=== PATIENT | female | born 1995 | race Caucasian/White ===

== ENCOUNTER 2018-03-25 16:45 | Inpatient (IN) | payer OTHER, SELFPAY ==
[2018-03-25 16:58] VITALS: BMI 25.0
[2018-03-25] MEDS: 0.9% Saline Lock 10 ML Syringe IV (17:38)
[2018-03-25 17:47] LABS: Hematocrit 34.7 % (37-47); Hemoglobin 11.3 g/dl (12.0-15.0); Mean Corp Hgb Conc 32.6 g/gl (32-36); Mean Corpuscular Hgb 27.4 pg (27.0-32.0); Mean Corpuscular Volume 84.2 fL (81-99); Mean Platelet Vol. 10.1 fl (6.2-12.0); Platelet Count 174 K/mm3 (150-450); RBC Distribution Width CV 14.4 % (11.6-14.6); Red Blood Count 4.12 M/mm3 (4.2-5.4); White Blood Count 10.3 K/mm3 (4.4-11.0)
[2018-03-25 17:48] LABS: Scan Indicated on CBC? Y/N NO
[2018-03-25] MEDS: miSOPROStol 25 MCG TABLET PO (17:48)
--- NOTE | 2018-03-25 18:03 | HP.PCM_ITS ---
History Date of Admission: 03/25/18 Final JING: 03/19/18 Final JING Source: US <20 weeks Gestational age: 40 Weeks and 6 Days History of this : 22-year-old 1 para 0 at 40-6/7 weeks gestation with EDC is 03/19/2018 by last menstrual period confirmed by first trimester ultrasound who presents for induction of labor today due to being 41 weeks at midnight. She denies any gross vaginal bleeding early fluid. She has had good movements. Her has been uncomplicated to date. Past medical history significant for abnormal Pap smear, and heavy periods Surgical history- tonsillectomy Allergies No Known Allergies Allergy (Verified 03/25/18 17:34) Home Medications: Home Medications Pnv95/Ferrous Fumarate/FA [ Vitamin Tablet] 1 each PO DAILY 03/25/18 Smoking Status: Never smoker History Past Pregnancies: Past Pregnancies Delivery Date Name GA/Weeks Outcome Route Weight Infant Gender Labor Length Anesthesia Delivery Location Provider FOB Expected Delivery Method: Spontaneous Vaginal Review of Systems Constitutional: Denies: Anorexia, Chills, Fever Cardiovascular: Denies: Chest Pain Respiratory: Denies: Cough Gastrointestinal: Denies: Diarrhea Skin: Denies: Rash Physical Exam General: Alert, Cooperative, No apparent distress Abdomen: Soft, Non Tender, Non-Distended, Gravid, Appropriate for Gestational Age Extremities:: No edema Estimated gestational size: Appropriate for gestational size Presentation: Cephalic Cervix Dilation (cm): 0.5 - posterior, firm Station: -3 Effacement (%): 70 Assessment/Plan FHTs category 1 22-year-old 1 para 0 at 40-6/7 weeks for cervical ripening tonight with Cytotec and likely Bernardo. Will likely be Pitocin and artificial rupture of membranes for the induction later. May have epidural if desires. Estimated weight is less than 4500 g clinically and pelvis clinically adequate to expect vaginal delivery. May use nitrous oxide or Nubain as well. Risks, benefits, and alternatives to induction labrum discussed with the patient , her questions were answered to her satisfaction she desires to proceed. Consents were signed.
[2018-03-25] MEDS: 0.9% Normal Saline 100 ML IV.SOLN. INTRA-UTER (21:10)
--- NOTE | 2018-03-25 21:16 | PCM.PN.BLA ---
Progress Note Feels mild contractions. No other c/o FHTs category one. Tocos shows irreg ctxs Cervix 60/-2, mid position and medium consistency Bernardo placed over stylette in usual sterile fashion and inflated to 30 cc. Placement over internal os confirmed Cont. expectant management one dose of vaginal cytotec now start pitocin prn if inadequate contractions in 4 hrs patient agrees w/ plan
[2018-03-25] MEDS: miSOPROStol 25 MCG TABLET VAGINAL (21:26)
[2018-03-25] MEDS: Ondansetron 4 MG/2 ML Vial IV (22:42)
[2018-03-26] MEDS: Oxytocin 30 units/NS 500 ml 30 UNITS/500 ML IV.SOLN IV (02:24)
[2018-03-26] MEDS: HYDROmorphone 1 MG/ML Syringe IV ×2 (04:41)
[2018-03-26] MEDS: Lactated Ringers 1,000 ML 50 ML IV ×3 (06:15→09:11)
[2018-03-26] MEDS: Ondansetron 4 MG/2 ML Vial IV (06:23)
[2018-03-26] MEDS: fentaNYL-bupivacaine (epidural) 100 ML BAG EPIDURAL (07:00)
--- NOTE | 2018-03-26 09:30 | PCM.PN.BLA ---
Progress Note Comfortable w/ epidural. Since epidural some variable and late decels. Normal baseline and moderate variability. AROM w/ return of small amount of clear fluid. IUPC and FSE placed, prolonged decels at that time. Repositioned, pitocin off. Now normal baseline and some decelerations w/ moderate variability. Will restart pitocin/ /-1. Cont. expectant management
[2018-03-26] MEDS: Amnioinfusion- 0.9% NS 1,000 ML IV.SOLN. 200 ML INTRA-UTER (10:51)
[2018-03-26] MEDS: Oxytocin 30 units/NS 500 ml 30 UNITS/500 ML IV.SOLN 334 UNITS IV (13:52)
[2018-03-26] MEDS: Oxytocin 30 units/NS 500 ml 30 UNITS/500 ML IV.SOLN 167 UNITS IV (14:02)
--- NOTE | 2018-03-26 14:08 | PCM.OB.VAG ---
Vaginal Delivery Maternal Presentation: Medically Indicated Induction Method of Induction: Pitocin, Bernardo Bulb, Amniotomy, Cytotec Medical Reason for Induction: - - 41 weeks Amniotic Membrane Rupture Type: Artificial Amniotic Fluid Description: Clear Final JING: 03/19/18 Final JING Source: LMP Gestational age: 41 Weeks and 0 Days Date of Procedure: 03/26/18 Pre-Operative Diagnosis: labor Post-Operative Diagnosis: same Surgery/ Procedure Performed: Spontaneous Vaginal Delivery Type of Anesthesia: Epidural Description of Procedure: A vigorous male infant was delivered AUDREY over a first-degree perineal laceration. A loose nuchal cord ?1 was easily reduced. The remainder the infant was delivered with maternal pushing and gentle traction only in less than 15 seconds. The Pitocin infusion was initiated for active management of the third stage. The cord was clamped and cut after 1 minute. The was attended to by the waiting nursing staff. The placenta was delivered spontaneously and intact. The cervix and vagina were intact. The first-degree perineal laceration was repaired with 2-0 Vicryl suture in a running standard fashion. Sponge and needle counts were correct. A vaginal sweep was completed by me. Presentation: AUDREY Placental Delivery Description: Spontaneous Placenta Disposition: [facility] Cord Vessel Description: 3 Vessels Nuchal Cord Compression: Without compression Cord Entanglement: Around neck x 1, loose Drain: Bernardo to straight drain Estimated Blood Loss: 200 Infant A gender: Male (1 minute): 8 (5 minute): 9 Episiotomy Description: None Laceration: 1st degree - perinal
[2018-03-26 17:27] VITALS: BP 115/70; PULSE 104; RESP 18; TEMP 37.2; O2SAT 97
--- NOTE | 2018-03-26 17:29 | NURSING ---
Patient attempted to ambulate to bathroom with nurse assistance, but got dizzy upon standing. Sat back in bed. Does not complain of a full bladder. Uterus is midline and 1 below umbilicus. Will reattempt ambulating in 30-60 minutes.
[2018-03-26 19:30] VITALS: BP 116/59; PULSE 83; RESP 18; TEMP 36.7
[2018-03-26] MEDS: Naproxen 250 MG Tablet PO (20:11)
[2018-03-26] MEDS: Dibucaine 30 GM Tube 1 APPLIC TOPICAL (21:41)
[2018-03-27 00:15] VITALS: BP 103/54; PULSE 85; RESP 16; TEMP 36.8
[2018-03-27 04:30] VITALS: BP 104/62; PULSE 75; RESP 18; TEMP 36.3
[2018-03-27] MEDS: Naproxen 250 MG Tablet PO (04:40)
[2018-03-27 08:00] VITALS: BP 115/78; PULSE 86; RESP 16; TEMP 36.5
[2018-03-27 12:30] VITALS: BP 111/69; PULSE 87; RESP 15; TEMP 36.8
--- NOTE | 2018-03-27 13:37 | PCM.PN.OB ---
Subjective: pain well controlled, average lochia, no N/V - Physical Exam General: Alert, Cooperative, No apparent distress Vital Signs Temp Pulse Resp BP Pulse Ox 98.2 F 87 15 111/69 97 03/27/18 12:30 03/27/18 12:30 03/27/18 12:30 03/27/18 12:30 03/26/18 17:27 Oxygen Delivery Method Room Air Weight: 72.3 kg Body Mass Index (BMI) 25.0 Intake and Output for Last 24 Hours 03/25/18 03/26/18 03/27/18 23:59 23:59 23:59 Intake Total 2079 / 2079 Output Total 400 / 400 2950 / 2950 Balance -400 / -400 -870 / -870 Medical Necessity - Tobacco Use Smoking Status: Never smoker Assessment/Plan PPD#1s/p and doing well would like to restart buspar home today if ok w/ peds
--- NOTE | 2018-03-27 13:40 | DCINST_ITS ---
Discharge Diet: No Restrictions Discharge Activity: Return to Normal Activity, May not drive while taking narcotic pain medications., May Shower May resume sexual activity in: 4-6 weeks Additional Activity Instructions:: Nothing in the vagina for 4-6 weeks. You may return to work/school in 6 weeks. Call your doctor if your incision/area has: Continuous Slow Oozing, Sudden Increased Bleeding, Increased Pain/ Swelling, Increased Redness, Foul Smelling Discharge Additional Instructions: If you experience any of the following, contact your healthcare provider. * Bleeding that soaks a pad every hour for 2 hours * Fever 100.4 or higher * Unrelieved incision or abdominal pain * Swelling, redness, discharge or bleeding from your incision or episiotomy site * Your incision begins to separate * Problems urinating (including inability to urinate or burning while urinating) . * Visual changes * Severe headache * Flu-like symptoms * Pain or redness in one of both of your breasts * Pain, warmth, tenderness or swelling in your legs, especially the calf area * Frequent nausea and vomiting * Symptoms of depression or anxiety If you experience any of the following, call 911 or go to the nearest Emergency Room. * Chest pain * Problems breathing * Seizure activity * Partial or complete paralysis of a body part, slurred speech, weakness or drooping of the face, or a sudden inability to walk or hold your balance Allergies/Adverse Reactions: Allergies No Known Allergies Allergy (Verified 03/25/18 17:34) Medications to take at Discharge Pnv95/Ferrous Fumarate/FA [ Vitamin Tablet] 1 each PO DAILY 03/25/18 Ibuprofen [Motrin] 800 mg PO TID PRN PRN #60 tab 03/27/18 busPIRone [Buspar] 5 mg PO DAILY #30 tab 03/27/18 The following prescriptions were given: busPIRone [Buspar] 5 mg PO DAILY #30 tab Ibuprofen [Motrin] 800 mg PO TID PRN PRN #60 tab PRN Reason: Pain Please Follow Up With: Em Linda MD - [phone] When: Call to make an appointment with your doctor in 3 and 6 weeks. If you had elevated Blood Pressure or 4th degree laceration you will need to be seen in 2 weeks. Primary Care Physician: Gracie Tam DO [Primary Care Provider] - Test Results:
--- NOTE | 2018-03-27 15:51 | NURSING ---
social service into see pt.
--- NOTE | 2018-03-27 16:00 | CASEMGMT ---
Social Work Assessment Labor and Delivery Unit Date of Referral: 03/26/2018 Time of Referral: [id number] Referred By: Dr. Em Linda Date of Intervention: 03/27/2018 Time of Intervention: 1600 Reason for Referral: maternal history of depression; 03/27/2018 - PHQ9 score of 3. History obtained from: Medical record, patient/mother of baby (MOB) Amrita Dial; father of baby (FOB) Supa Campa present for part of conversation. Household composition: MOB and FOB currently live with FOBs mother for the next few weeks, then will be moving to a new apartment together. MOB reports home situation is safe and adequate. Patient's parent/guardian status: MOB and FOB have been together for 3 years, this is the first child for both. [place] is [place] 7[birth year]. Medical History: MOB is G1, P0 to 1 after delivering infant. MOB reported was unexpected. born weighing 3298 grams, Apgars 8 and 9 at 1 and 5 minutes of life. Educational Status: MOB just graduated in January 2018 from [employer] with a degree in [employer] and [place]. No issues with reading, writing, or learning comprehension. FOB also just graduated with a degree in accounting. Financial Status: MOB works in [employer], gets 4 months of for maternity leave. FOB works for an accounting firm. Infant Supplies: Reports to have needed supplies including car seat, pack-n-play with bassinet attachment, clothing, diapers, wipes, bottles, and getting a breast pump. Childcare/Caregiver(s): MOB and FOB. MOB reports when returns to work to have a couple of babysitting options in place. Transportation: No issues. Both parents drive. Programs/Agencies Involved: No agency involvement, nor do MOB and FOB report any need for financial help at this time. Behavioral Health Issues: MOB reports history of depression and anxiety since teenage years, did try counseling as a teen but did not really care for this too much. MOB endorses history of suicidal thoughts as a teen, no plans, intent, or attempt however. MOB reports this was years ago, and no thoughts at all during this . MOB reports has been on Celexa and Buspar prior to and this medicine, especially the Buspar worked well for MOB. MOB reports was not taking the Celexa consistently, prior to , and then weaned self off of the Buspar by the third trimester. MOB does endorse having some depression and anxiety near the end of this , describing this to be just feeling overwhelmed. MOB reports belief that restarting both medications will be sufficient for now to manage emotional health symptoms. MOB denies any illicit drug use history. Does use alcohol socially, but no concerns about abuse or dependence of alcohol. No tobacco use either. Family/Social Stressors: MOB is a single mother, just graduating from college, and with an unplanned . MOB reports initially some ambivalence about the , reporting that had a split with the FOB and had just gotten back together when baby was conceived. MOB reports went through a lot of emotions, but did accept the and reports that would not change anything at this point. In addition to this, MOB and FOB moved in with FOBs mother after graduation and will be moving again in 2 weeks, so various life changes happening in MOBs life. MOB also just started a new job. Support Systems: MOB reports FOB is supportive, denies any form of abuse in this relationship. MOB and FOB report that FOB will be home with MOB for most of MOBs maternity leave, and able to help out. FOBs mother will be available and helpful for the next 2 weeks that living in FOBs mothers home. MOB reports FOBs family will be closer to the new apartment, and are willing to help out if needed after the move. MOB reports to have a supportive family as well, but to live farther away ([facility]). ASSESSMENT: Met with MOB and FOB together, both pleasant and friendly. FOB quiet, but also participated in conversation when questions directed to FOB. When alone with MOB addressed more in-depth mental health history, current status, substance use history, and any domestic violence concerns. MOB able to identify appropriate responses for shaken baby prevention. MOB and FOB reports to know about safe sleeping, including no co-sleeping. Broached depression and anxiety with both MOB and FOB together, educating to risk present, importance of seeking out help and support, as well as fathers also sometimes getting depression. MOB held good eye contact, appropriate mood and affect noted. MOB did cry a few times when talking to social welfare administrator alone, at points in conversation which held more of an emotional connection for MOB (such as ambivalence initially about and adjustment period to being ). MOB apologized for crying and indicated that not sure why she was crying. Educated MOB to the baby blues versus depression and anxiety, as well as for it to be common for women to have fluctuations in mood and emotions right after delivery. Addressed the PHQ9 with MOB, score of 3. Describes depression and anxiety as feeling overwhelmed over the last couple weeks, has had a lot of changes in a short time and getting ready for baby. No thoughts, plans, intent to harm self or others. MOB did have symptoms related to being more tired, not sleeping well, and appetite changes. These symptoms could be in part due to emotional health but also due to MOB being a week overdue with baby and exhaustion from . Supportive listening offered, reinforced importance of letting others know if struggling at all with mood or anxiety in the period, as well as normalizing that mental health issues impact many women. Validated and normalized MOBs feelings, supportive listening offered, and discussed self-care. MOB expressed thanks for social welfare administrator coming to talk and reported that this was helpful. MOB does reports intent to remain on medication in the period, that can talk to FOB that likes to exercise for other coping, and that if medication and usual coping does not seem to be working for MOB, MOB would be willing to call and talk to a counselor again. MOB denies any other needs for home going. Reports to love the baby, to be happy about the baby, and to be glad to have the baby. Note, observed MOBs face and affect to brighten when the RN brought baby back to the room, MOB gazing at baby, smiling and seeming to want to make sure baby is okay. PLAN: MOB and baby to home at discharge. Provided MOB packet on mood and anxiety disorders including some online supports for MOB and FOB both. Resource packet for [facility] provided. No other services requested or indicated. -GLENYS Lemus MSW
[2018-03-27 17:00] VITALS: BP 108/60; PULSE 86; RESP 16; TEMP 36.6
[2018-03-27] MEDS: Acetaminophen 500 MG Tablet 1000 MG PO (17:15)
[2018-03-27] MEDS: busPIRone 5 MG Tablet PO (17:15)
[2018-03-27] MEDS: Dibucaine 30 GM Tube 1 APPLIC TOPICAL (17:15)
[2018-03-27 19:25] VITALS: BP 102/54; PULSE 77; RESP 16; TEMP 36.7; O2SAT 97
[2018-03-28 02:55] VITALS: BP 98/49; PULSE 79; RESP 16; TEMP 36.4; O2SAT 96
--- NOTE | 2018-03-28 08:39 | PCM.PN.OB ---
Subjective: Patient sitting up in bed denying any complaints or concerns at this time. Reports she has not had a bowel movement yet, desires a stool softener today and instructions prior to discharge. Patient denies LEES, scotoma or dizziness. Patient desires discharge today. Objective: Nipples with a few fine cracks, no ecchymoses noted. No blisters seen. Abd NT x 4 quadrants, FF midline 3FB below umbilicus Scant rubra lochia, perineum well-approximated No edema in LE noted, negative calf tenderness to palpation - Physical Exam General: Alert, Oriented x3, Cooperative HEENT: Atraumatic, Normocephalic Neck: Supple Lungs: Clear to auscultation, Normal air movement Cardiovascular: Regular rate, No murmurs Abdomen: Soft, Non Tender Extremities: No edema, Capillary Refill Less than 3 Seconds Skin: No rashes, No breakdown Musculoskeletal: No Tenderness to Palpation of Joints or Extremities Neurological: Cranial nerves II-XII grossly intact Psych/Mental Status: Normal Affect, Appropriate Vital Signs Temp Pulse Resp BP Pulse Ox 97.6 F L 79 16 98/49 L 96 03/28/18 02:55 03/28/18 02:55 03/28/18 02:55 03/28/18 02:55 03/28/18 02:55 Oxygen Delivery Method Room Air Weight: 159 lb 6.307 oz Body Mass Index (BMI) 25.0 Intake and Output for Last 24 Hours 03/26/18 03/27/18 03/28/18 23:59 23:59 23:59 Intake Total 0 / 2080 Output Total 2950 / 2950 Balance -870 / -870 Medical Necessity - Tobacco Use Smoking Status: Never smoker Assessment/Plan 22 y/o s/p following IOL for postdates, Normal Course, PPD #2 P: 1) Discharge patient to home 2) Anticipatory health PP teaching done 3) RTC to [facility] by 6 weeks PP - patient may schedule this visit prior to her scheduled vacation at 5 weeks PP. Kasia ANNE
[2018-03-28] MEDS: Senna/Docusate Sodium 1 Tablet PO (08:49)
[2018-03-28 08:50] VITALS: BP 109/73; PULSE 91; RESP 20; TEMP 36.2; O2SAT 96
[2018-03-28] MEDS: busPIRone 5 MG Tablet PO (10:19)
== END 2018-03-28 12:05 | disposition home or self-care (01) | DRG 775 ==
PROVIDERS: Admitting Provider Obstetrics & Gynecology; Family Provider Internal Medicine; PCP Internal Medicine; Visit Provider Obstetrics & Gynecology
DX: O48.0 Post-term pregnancy (principal); Z3A.40 40 weeks gestation of pregnancy; O76 Abnormality in fetal heart rate and rhythm complicating labor and delivery; O69.81X0 Labor and delivery complicated by cord around neck, without compression, not applicable or unspecified; O70.0 First degree perineal laceration during delivery; Z37.0 Single live birth
CPT/HCPCS: 59025; 59050; 85027; 86850; 86900; 99218; J7030; J7120; A4216; G0378; J2405

== ENCOUNTER 2018-04-01 14:15 | Outpatient (CLI) | payer OTHER, SELFPAY | END 2018-04-01 15:00 | disposition home or self-care (01) | LOC: WPOUT 14:27 → WP 14:27 | PROVIDERS: Family Provider Internal Medicine; PCP Internal Medicine; Visit Provider Obstetrics & Gynecology | DX: O92.79 Other disorders of lactation (principal) | CPT/HCPCS: 96152 ==

== ENCOUNTER → 2018-06-10 12:17 | Outpatient (CLI) | payer OTHER, SELFPAY ==
[2018-06-10 12:44] LABS: Absolute Lymphocyte Count 1.22 X10^3/ul (0.83-4.51); Absolute Neutrophil Count 4.2 X10^3/uL (2.0-7.7); Basophil# 0.01 X10^3/uL; Basophil% 0.2 % (0-1); Eosinophil# 0.18 X10^3/uL; Hematocrit 40.3 % (37-47); Hemoglobin 13.1 g/dl (12.0-15.0); Lymphocyte # 1.22 X10^3/ul (4.0); Lymphocyte % 20.5 % (19-41); Mean Corp Hgb Conc 32.5 g/gl (32-36); Mean Corpuscular Volume 86.1 fL (81-99); Mean Platelet Vol. 9.6 fl (6.2-12.0); Monocyte# 0.38 X10^3/uL; Monocyte% 6.4 % (0-10); Neutrophil # 4.16 X10^3/uL (2.7-7.7); Neutrophil % 69.7 % (47-70); POSITIVE COUNT NO; POSITIVE DIFFERENTIAL NO; POSITIVE MORPHOLOGY NO; Platelet Count 197 K/mm3 (150-450); RBC Distribution Width SD 43.6 fl (35.1-43.9); Red Blood Count 4.68 M/mm3 (4.2-5.4)
[2018-06-12 09:07] LABS: EBV Acute VCA IgM < 36.0 U/mL (0.0-35.9); EBV Early Antigen IgG <9.0 U/mL (0.0-8.9); EBV Nuclear Antigen IgG < 18.0 U/mL (0.0-17.9); EBV-VCA IgG 43.3 U/mL (0.0-17.9)
== END ==
PROVIDERS: Family Provider Internal Medicine; PCP Internal Medicine; Visit Provider Nurse Practitioner
DX: R53.83 Other fatigue (principal)
CPT/HCPCS: 36415; 85025; 86663; 86664; 86665

== ENCOUNTER 2020-03-10 05:56 | Day surgery (SDC) | payer OTHER, SELFPAY ==
[2019-12-05 10:02] VITALS: BMI 23.1
[2020-03-10] VITALS (7 sets, daily range): BP systolic 104–118; BP diastolic 59–83; PULSE 55–87; RESP 16; TEMP 36.7–37.1; O2SAT 98–100; BMI 22.6
[2020-03-10 06:28] LABS: Internal QC Validated? YES +Cl - CLEAR BKGD; Pregnancy, Urine Negative Negative
[2020-03-10] MEDS: Lactated Ringers 1,000 ML 100 ML IV ×2 (06:34→07:45)
--- NOTE | 2020-03-10 06:43 | HP.PCM_ITS ---
- Problem List (1) Heavy menses Status: Acute (2) Uterine polyp Status: Acute History Date of Admission: 03/10/20 Final JING Source: LMP History of this : This is a 24 year-old G0 with HMB and a polyp on ultrasound. Medical History: Medical History (This Medical Record has been edited. Action required.) Depression F32.9 History of abnormal cervical Pap smear Z87.42 History of vaginal delivery Surgical History: Surgical History (This Medical Record has been edited. Action required.) History of tonsillectomy Z90.89 Allergies No Known Allergies Allergy (Verified 03/08/20 10:31) Home Medications: Home Medications NK 03/08/20 Smoking Status: Never smoker History Past Pregnancies: Past Pregnancies Delivery Date Name GA/ Weeks Outcome Route Wt Infant Sex Labor Length Anesthesia Delivery Location Provider FOB Review of Systems Constitutional: Denies: Chills, Fever Eyes: Denies: Blurred vision HEENT: Denies: Head Aches Cardiovascular: Denies: Chest Pain Respiratory: Denies: Cough, Shortness of Breath Gastrointestinal: Denies: Abdominal Pain Genitourinary: Denies: Dysuria Gynecological: Denies: Breast symptoms Psychiatric: Denies: Anxiety Hematologic/ Lymphatic: Denies: Hx of blood clot, Hx of blood transfusion Physical Exam Vitals: Vital Signs Temp Pulse Resp BP Pulse Ox 98.1 F 87 16 118/83 H 98 03/10/20 06:20 03/10/20 06:20 03/10/20 06:20 03/10/20 06:20 03/10/20 06:20 General: Alert, No apparent distress HEENT: Atraumatic Cardiovascular: Regular rate Lungs: Clear to auscultation Abdomen: Soft, Non Tender, Non-Distended Extremities:: No edema Neurological: Neuro grossly intact MINIATURE MODEL MAKER: Normal external genitalia Assessment/Plan All Active Problems (This Medical Record has been edited. Action required.) Heavy menses (Acute) Uterine polyp (Acute) Influenza (Acute) This is a 24 year-old with heavy menses. CBC shows a hemoglobin of 13.3 and platelets of 264. Thyroid panel is normal. Pelvic ultrasound shows an endometrial polyp within the uterus. Pap smear is normal. Discussed that there may not be a polyp present at the time of the surgery. Also discussed that her bleeding may not improve after removal of the polyp. Reviewed hysteroscopy with polypectomy. Reviewed alternatives to surgery. Discussed control options including Mirena IUD placement at the time of surgery. Patient declines IUD at this time. After discussion of risk, benefits, alternatives to surgery the patient provided consent and desires to proceed with planned surgery.
--- NOTE | 2020-03-10 08:00 | DCINST_ITS ---
Discharge Diet: No Restrictions Discharge Activity: May Drive - After 24 hours, May Shower May resume sexual activity in: 1-2 weeks Weight Bearing Status: Full weight bearing Lifting Restrictions: No restrictions Call your doctor if you observe: Fever of 101 or Higher, Inability to urinate, Inability to have a bowel movement, Using more than one pad per hour, Shortness of breath, Dizziness, Chest pain, Increased palpitations (irregular heartbeat), Calf discomfort, Uncontrolled pain Allergies/Adverse Reactions: Allergies No Known Allergies Allergy (Verified 03/08/20 10:31) Medications to take at Discharge NK 03/08/20 Primary Care Physician: Gracie Tam DO [Primary Care Provider] - Test Results: Test results from this visit will be discussed in further detail at your follow- up appointment, if applicable. Please Follow Up With: Glenis Lane DO When: 1-2 weeks for post-operative appointment
--- NOTE | 2020-03-10 08:01 | PCM.OPRPT ---
Problem List (1) Heavy menses Status: Acute (2) Uterine polyp Status: Acute Report of Operation Date of Procedure: 03/10/20 Pre-Operative Diagnosis: Menorrhagia, uterine polyp noted on pelvic US Post-Operative Diagnosis: Menorrhagia, no polyp Surgery/Procedure Performed:: Diagnostic hysteroscopy Description of Surgical Findings:: Normal-appearing uterine cavity. Bilateral tubal ostia visualized. No polyps or fibroids noted. Normal-appearing cervical canal. Type of Anesthesia:: MAC Special Medications: None Specimen's removed: None Drains: None Estimated Blood Loss (mL): < 10 cc Description of Procedure: Risks, benefits, alternatives to the surgery were discussed and patient signed consent. Patient was taken to the operating room where MAC anesthesia was found to be adequate. She was prepped and draped in the dorsal lithotomy position using yellowfin stirrups. The uterus was noted to be anteverted on exam. The uterus was normal in size and mobile. A weighted speculum was placed in the vagina to expose the cervix. The tenaculum was placed on the anterior lip of the cervix. The cervix was serially dilated to accommodate the Symphion hysteroscope. The Symphion hysteroscope was unable to be easily passed into the uterine cavity due to stenosis of the internal cervical os. The Symphion hysteroscope was removed. A diagnostic hysteroscope was then used. The diagnostic hysteroscope was advanced easily and gently into the uterus. The uterus was distended with normal saline. The uterine cavity was visualized and the bilateral tubal ostia were noted. The uterine cavity was normal. Hysteroscope was then removed. All instruments removed from the vagina. Instrument sponge counts were correct. Vaginal sweep was performed. The patient was taken recovery in stable condition. Grafts/Implants Used: None - Complications None - Admit VTE Documentation VTE Present on Admission: No VTE Mechan Device Prophylaxis: SCD's
== END 2020-03-10 08:58 | disposition home or self-care (01) ==
LOC: SDC 05:56 → AC 05:57
PROVIDERS: Anesthesiology; PCP Internal Medicine; Referring Provider Obstetrics & Gynecology; Visit Provider Obstetrics & Gynecology
PROC: 0UB98ZZ Excision of Uterus, Via Natural or Artificial Opening Endoscopic (ICD-10-PCS; CPT 58558; principal; 2020-03-10 07:15)
DX: N92.0 Excessive and frequent menstruation with regular cycle (principal); Z11.59 Encounter for screening for other viral diseases
CPT/HCPCS: 58558; 81025; 86850; 86900; 86901; 87635; G2023; J7120; J2405; U0003

== ENCOUNTER 2021-10-04 13:21 | Outpatient (CLI) | payer OTHER, SELFPAY ==
--- NOTE | 2021-10-04 13:34 | US_ITS ---
STUDY: ULTRASOUND OF THE FEMALE PELVIS - COMPLETE REASON FOR EXAM: Female, 26 years old. RIGHT LOWER QUADRANT PAIN, ADNEXAL PAIN LMP: 08/27/2021. TECHNIQUE: Transabdominal and Transvaginal TECHNICAL QUALITY: Adequate. COMPARISON: None. FINDINGS: The uterus is anteverted and is in a midline position. The uterus measures 8.3 cm x 6.2 cm x 3.9 cm. There is a Nabothian cyst of the cervix. The endometrium measures 3.9 mm in thickness, and is fluid distended. There is no demonstrated endometrial mass. There is no demonstrated myometrial mass. I.U.D. - The patient does not have an I.U.D. The right ovary is visualized. The right ovary measures 4.1 cm x 1.9 cm x 2 cm. There is no right ovarian cyst or ovarian mass. There is no visualized right adnexal mass or complex lesion. There is normal arterial and normal venous vascularity. The left ovary is visualized. The left ovary measures 3.7 cm x 3.1 cm x 3 cm. There is a 2.6 cm x 2.6 cm x 2.5 cm septated cyst in the left ovary. There is no visualized left adnexal mass or complex lesion. There is normal arterial and normal venous vascularity. There is no fluid in the cul-de-sac. US/Transvaginal Non- IMPRESSION: The endometrium is fluid distended. 2.6 cm x 2.6 cm x 2.5 cm septated cyst in the left ovary. Electronically Signed: Babar Angeles MD at 14:55 EST , Service support ,
== END 2021-10-04 23:59 | disposition short-term general hospital (02) ==
LOC: US 13:25
PROVIDERS: PCP Internal Medicine; Referring Provider Nurse Practitioner Family; Visit Provider Nurse Practitioner Family
DX: N83.292 Other ovarian cyst, left side (principal); R10.31 Right lower quadrant pain; R10.2 Pelvic and perineal pain
CPT/HCPCS: 76830

== ENCOUNTER 2025-06-30 19:17 | Emergency (ER) | payer OTHER, SELFPAY ==
[2025-06-30 19:18] VITALS: BP 109/89; PULSE 91; RESP 16; TEMP 37; O2SAT 100; BMI 19.1
--- NOTE | 2025-06-30 20:37 | CT_ITS ---
PROCEDURE: ABDOMEN/PELVIS W IV CONT ONLY 06/30/2025 REASON FOR EXAM: DIARRHEA, PAIN TECHNIQUE: Procedure Code: [id number] Modality: CT Procedure: ABDOMEN/PELVIS W IV CONT ONLY Coronal and Sagittal reconstruction series were provided. CONTRAST: VOLUME: mL One or more dose reduction techniques were used (e.g., Automated exposure control, adjustment of the mA and/or kV according to patient size, use of iterative reconstruction technique. FINDINGS: The uterus is prominent and fluid-filled, and demonstrates an arcuate configuration. A 4.1 cm round cyst is noted within the left adnexa, likely an ovarian cyst. Please correlate with the patient's menstrual cycle. No evidence of a bowel obstruction. Questionable mild wall thickening of the hepatic flexure of the colon may represent very mild colitis. Otherwise no bowel wall thickening is appreciated. The appendix is not clearly identified, however no overt inflammatory changes are noted in the pericecal region. Subcentimeter oval low-density within the dome of the liver likely represents a small cyst. The gallbladder, pancreas, spleen, adrenal glands, kidneys, and partially decompressed urinary bladder appear unremarkable. No acute osseous abnormality. The visualized lung bases are clear. CT/Abdomen/Pelvis W IV Cont ONLY IMPRESSION: 1. Prominent fluid-filled uterus with an arcuate configuration. Please correl ate with the patient's menstrual cycle. 2. Left ovarian cyst measuring 4.1 cm. 3. Questionable mild wall thickening of the hepatic flexure of the colon may r epresent very mild colitis. Reading Location: [id number]
--- NOTE | 2025-06-30 20:37 | EX.ED.DYSGE1 ---
HPI History of Present Illness Chief Complaint: General Illness Narrative Narrative: 30-year-old female who denies significant past medical history presents with multiple somatic complaints including nausea, diarrhea, abdominal pain, and chest burning that she has had intermittently for the last month. She relates history that she was diagnosed with COVID in early May, just over a month ago. Since then, she has had intermittent symptoms that last approximately a week. She had multiple episodes of diarrhea. She is nauseated and has had decreased p.o. intake. She has chest burning and cough. No exacerbating or alleviating factors. PFSH PFS Medical History Depression History of abnormal cervical Pap smear History of vaginal delivery Home Medications ?Medication ?Instructions ?Recorded ?Last Taken ?Type cefdinir 300 mg capsule 300 mg PO BID #14 caps 06/30/25 Unknown Rx metronidazole 500 mg tablet 500 mg PO Q8H #21 tabs 06/30/25 Unknown Rx ondansetron 4 mg disintegrating 4 mg PO Q8H PRN PRN Nausea #10 tabs 06/30/25 Unknown Rx tablet Allergy/AdvReac Type Severity Reaction Status Date / Time No Known Allergies Allergy Verified 06/30/25 19:21 Surgical History History of tonsillectomy Social History Smoking Status: Never smoker ROS ROS ED ROS Narrative Review of systems positive for nausea, no vomiting. Positive epigastric abdominal pain. Positive diarrhea. Burning in chest, occasional cough. Last menstrual period approximately 1 week ago. EXAM Physical Exam Narrative Exam Narrative: Afebrile. Vital signs noted. Nontoxic-appearing. Cardiovascular examination reveals regular rate and rhythm. Lungs are clear to auscultation bilaterally. Abdomen is soft and nontender with the exception of mild tenderness in the epigastrium to diffusely. Negative [place] sign. Positive bowel sounds. Neurological examination nonfocal, nonlateralizing. Const Vital Signs: 06/30/25 19:18 06/30/25 19:53 06/30/25 21:17 Temperature 98.6 F Temperature Source Oral Pulse Rate 91 85 Respiratory Rate 16 15 Respiratory Effort Normal Respiratory Pattern Normal Blood Pressure 109/89 H 111/71 Blood Pressure Mean 95 84 Pulse Ox 100 99 Oxygen Delivery Method Room Air Room Air 06/30/25 23:00 Temperature Temperature Source Pulse Rate 74 Respiratory Rate 18 Respiratory Effort Respiratory Pattern Blood Pressure 112/67 Blood Pressure Mean 82 Pulse Ox 99 Oxygen Delivery Method Room Air MDM MDM MDM Narrative Medical decision making narrative: Differential diagnosis includes but not limited to colitis versus nonspecific diarrhea versus dehydration versus other electrolyte imbalance. I have low suspicion for post COVID-pneumonia. Pulse ox 100% on room air. Additionally I have a low suspicion for pulmonary embolism. I do not feel that she requires a D-dimer. She is not tachycardic. She will be bolused normal saline 1 L intravenously and administered ondansetron. I reviewed her laboratory work and she has normal white count of 4.8 with hemoglobin normal at 13.2, platelet count normal at 243. CMP remarkable for creatinine low at 0.69 with BUN normal at 8, no dehydration, normal sodium of 142, potassium normal 3.5. Glucose 93. High-sensitivity troponin is less than 6. I do not feel she needs serial enzymes. LFTs are grossly unremarkable. Lipase normal at 28. I doubt pancreatitis. Serum test is negative. Urinalysis shows no evidence of infection with 0-5 WBCs. I do not feel she needs antibiotics for UTI. Chest x-ray interpreted by myself independently shows no acute process, no pneumonia or pneumothorax. I reviewed the radiology report which confirms my independent interpretation. CT of the abdomen and pelvis with IV contrast shows a left ovarian cyst, but at the hepatic flexure there may be a very small area of colitis, no obstruction. Given her diarrhea and epigastric to right upper quadrant pain, she will be treated as infectious colitis. She was given her first doses of cefdinir and Flagyl and prescriptions written to take cefdinir 300 mg twice a day for 7 days and Flagyl 3 times a day for 7 days. She was also written a prescription for 10 Zofran ODT's. At this point in time, upon repeat examination, she feels slightly improved. She would like something to eat and drink currently. She is motivated for discharge. I feel she can be discharged to follow-up with gastroenterology and/or a primary care provider. Return instructions to the emergency department were reviewed. Disposition is discharged home in stable condition. History & Record Review Discussion w/independent historian: Patient Additional record(s) reviewed:: Prior ED visit Lab Data Attestation: I reviewed the patient's lab results. Labs: Laboratory Results - last 24 hr 06/30/25 06/30/25 20:50 21:45 WBC 4.8 RBC 4.48 Hgb 13.2 Hct 38.2 MCV 85.3 MCH 29.5 MCHC 34.6 RDW Std Deviation 38.0 RDW Coeff of Jess 12.3 Plt Count 243 MPV 9.9 Immature Gran % (Auto) 0.200 Neut % (Auto) 41.3 L Lymph % (Auto) 47.0 H [place] % (Auto) 7.1 Eos % (Auto) 3.8 Baso % (Auto) 0.6 Absolute Neuts (auto) 2.0 Absolute Lymphs (auto) 2.24 Nucleated RBC % 0 Sodium 142 Potassium 3.5 Chloride 105 Carbon Dioxide 25.4 Anion Gap 12 BUN 8 Creatinine 0.69 L Estim Creat Clear Calc 105.10 Est GFR (MDRD) Non-Af 120 BUN/Creatinine Ratio 11.6 Glucose 93 Calcium 9.4 Total Bilirubin 0.55 AST 15 ALT 7 Alkaline Phosphatase 56 Troponin T High Sens < 6 Total Protein 7.6 Albumin 4.8 Globulin 2.8 Albumin/Globulin Ratio 1.7 Lipase 28 Serum , Qual NEGATIVE Urine Color Yellow Urine Clarity Clear Urine pH 5.0 Ur Specific [place] 1.015 Urine Protein 30 H Urine Glucose (UA) Normal Urine Ketones 5 H Urine Occult Blood Negative Urine Nitrite Negative Urine Bilirubin Negative Urine Urobilinogen Normal Ur Leukocyte Esterase Negative Urine RBC 0-5 SEEN Urine WBC 0-5 SEEN Ur Squamous Epith Cells 5-10 SEEN Urine Bacteria 1+ Hyaline Casts 0-5 SEEN Urine Mucus 3+ Radiography Diagnostic Testing: Clinical Impression(s) from Imaging Studies Abdomen/Pelvis CT 06/30/25 20:37 IMPRESSION: 1. Prominent fluid-filled uterus with an arcuate configuration. Please correlate with the patient's menstrual cycle. 2. Left ovarian cyst measuring 4.1 cm. 3. Questionable mild wall thickening of the hepatic flexure of the colon may represent very mild colitis. Reading Location: [facility] Chest X-Ray 06/30/25 21:10 IMPRESSION: Mild bibasilar atelectasis. Bilateral hyperinflated lungs. Reading Location: [facility] Discharge Plan Triage Chief Complaint: General Illness ED Provider: Eugenio Reddy Dx/Rx/DC Orders Clinical Impression: Nausea, vomiting, and diarrhea, Colitis, Abdominal pain Instructions: ED Understanding Colitis Prescriptions: New cefdinir 300 mg capsule 300 mg PO BID Qty: 14 0RF metronidazole 500 mg tablet 500 mg PO Q8H Qty: 21 0RF ondansetron 4 mg tablet,disintegrating 4 mg PO Q8H PRN PRN (Reason: Nausea) Qty: 10 0RF Primary Care Provider: Mariam Dial Referrals: Gracie Tam DO [Med Staff - Java Xml Developer, Internal Medicine] Benedict Johnson MD [Med Staff - Active Staff, Family Practice] - 1 Week Guillaume Reyes DO [Med Staff - Active Staff, Gastroenterology] - 1 Week if not improving Activity Restrictions/Additional Instructions: Antibiotics as directed. Do not drink alcohol while taking metronidazole. Follow-up with a primary care provider and/or gastroenterology. Return with fever, increased pain, new or worsening symptoms. Print Language: Kyrgyz Disposition Disposition: Home, Self Care
[2025-06-30] MEDS: 0.9% Normal Saline (1000mL) 1,000 ML 1000 ML IV (20:53)
[2025-06-30 21:07] LABS: Hematocrit 38.2 % (37-47); Hemoglobin 13.2 g/dL (12.0-15.0); Immature Granulocytes Count 0.010 X10^3/uL (0.0-0.0); Mean Corp Hgb Conc 34.6 g/dL (32-36); Mean Corpuscular Volume 85.3 fL (81-99); Mean Platelet Vol. 9.9 fl (6.2-12.0); NRBC Flagged by Analyzer 0 % (0-5); Platelet Count 243 K/mm3 (150-450); RBC Distribution Width CV 12.3 % (11.6-14.6); RBC Distribution Width SD 38.0 fl (35.1-43.9); Red Blood Count 4.48 M/mm3 (4.2-5.4); White Blood Count 4.8 K/mm3 (4.4-11.0)
--- NOTE | 2025-06-30 21:10 | RAD_ITS ---
PROCEDURE: CHEST 1 VIEW (PORTABLE) 06/30/2025 REASON FOR EXAM: SHORTNESS OF BREATH TECHNIQUE: Frontal view of the chest. COMPARISON: None FINDINGS: Heart: The heart size is normal. Lungs: Mild bibasilar atelectasis. Bilateral hyperinflated lungs. Bones: Unremarkable RAD/Chest 1 View (Portable) IMPRESSION: Mild bibasilar atelectasis. Bilateral hyperinflated lungs. Reading Location: [id number]
[2025-06-30 21:13] LABS: Internal QC Validated? YES +Cl - CLEAR BKGD; Pregnancy, Serum, hCG Quali. NEGATIVE Negative
[2025-06-30 21:14] LABS: Record Kit Lot#, Serum Preg. 980607
[2025-06-30 21:17] VITALS: BP 111/71; PULSE 85; RESP 15; O2SAT 99
[2025-06-30 21:43] LABS: AST(SGOT) 15 U/L (<=31); Alanine Aminotransfer ALT/SGPT 7 U/L (<=34); Albumin, Serum 4.8 g/dL (3.5-5.0); Alkaline Phosphatase 56 U/L (35-104); Anion Gap 12 (5-15); BUN 8 mg/dL (4-19); BUN/Creat Ratio 11.6 RATIO (10-20); Calcium,Total 9.4 mg/dL (7.6-11.0); Carbon Dioxide 25.4 mmol/L (21.0-32.0); Chloride 105 mmol/L (98-108); Estimated Creatinine Clearance 105.10 ml/min (50-250); Globulin 2.8 g/dL (2.2-4.2); Glucose 93 mg/dL (70-99); Lipase 28 U/L (13-75); Potassium 3.5 mmol/L (3.3-5.1); Troponin T High Sensitivity < 6 ng/L (<=14)
[2025-06-30 22:22] LABS: Color, Urine Yellow (Yellow); Glucose, Dipstick Normal (Normal); Ketone-Dipstick 5 mg/dl (Negative); Leukocyte Esterase-Dipstick Negative /ul (Negative); Nitrite-Dipstick Negative (Negative); Occult Blood-Urine Negative /ul (Negative); Protein-Dipstick 30 mg/dl (Negative); Specific Gravity, Urine 1.015 (1.002-1.030); Urine Bilirubin Dipstick Negative (Negative)
[2025-06-30 22:45] LABS: Red Blood Cells-Urine 0-5 SEEN /hpf (0-5); Squamous Epithelial Cells - UA 5-10 SEEN /hpf (5-10)
[2025-06-30 22:47] LABS: Mucous, Urine 3+ /hpf (<or=2+)
[2025-06-30 23:00] VITALS: BP 112/67; PULSE 74; RESP 18; O2SAT 99
[2025-06-30 23:46] VITALS: BP 112/87; PULSE 60; RESP 14; TEMP 36.6; O2SAT 99
== END 2025-06-30 23:47 | disposition home or self-care (01) ==
PROVIDERS: Emergency Provider Emergency Medicine; PCP Internal Medicine; Visit Provider Emergency Medicine
DX: R11.2 Nausea with vomiting, unspecified (principal); K52.9 Noninfective gastroenteritis and colitis, unspecified; R10.9 Unspecified abdominal pain; Z79.899 Other long term (current) drug therapy
CPT/HCPCS: 71045; 74177; 80053; 81001; 83690; 84484; 84703; 85025; 93005; 96361; 96374; 99285; Q9967; A4216; J2405

== ENCOUNTER 2025-07-28 15:44 | Emergency (ER) | payer OTHER, SELFPAY ==
[2025-07-28 15:45] VITALS: BP 133/95; PULSE 85; RESP 16; TEMP 36.2; O2SAT 100; BMI 18.8
--- NOTE | 2025-07-28 16:01 | ED.VIS.GI ---
HPI HPI - GI History of Present Illness Chief Complaint: Diarrhea Detail of Chief Complaint: Diarrhea greater than a month with mucus Informant: patient and parent Abdominal Pain/Flank Pain Onset: Month(s) Context: Sudden Onset Timing: Continuous and Waxes and wanes Quality: Aching Location: [facility] (Presently. Has been in other locations.) Current Severity: Mild Maximum Severity: Moderate Worsened by: Nothing Relieved by: Nothing Nausea/Vomiting/Emesis GI Symptom: Positive for Nausea; Negative for Vomiting Diarrhea/Melena/Hematochezia GI Symptom: Positive for Diarrhea; Negative for Melena or Hematochezia Onset: Month(s) Stool Quality: Positive for Loose and Watery Severity: Moderate Episodes: 6 Associated Symptoms Associated Symptoms: Negative for Dysuria, Frequency, Hematuria or Urgency LMP: Last week. Not sexually active. Narrative Narrative: Patient is a 30-year-old female. She was seen on June [address] Judith Kaur. Reviewed his records. This felt the patient had infectious diarrhea because there was evidence of thickening and question of colitis involving the hepatic flexure region. She states the antibiotics did not slow the diarrhea down. According to mom there is no history of Crohn disease or ulcerative colitis. She has had intermittent fevers over the past month. She has lost 13 pounds over the last 2 months. States she has no appetite. She denies joint pain or swelling. She denies any lesions or bumps on the anterior right or left leg. She denies headache, double vision, blurred vision loss of vision. Eyes ringing ears decreased hearing. Denies upper respiratory tract infectious symptoms. She denies cardiac or respiratory symptoms. She does endorse left upper quadrant pain. There is no history of pancreatitis. There is no intolerance to greasy or fried foods. She states the stool at times is watery and looks like bile . She has not noted any blood in the diarrhea. She has noted mucus. Prior similar symptoms: Yes Recent Illness/Hospitalization: Yes (Seen June 30, 2025.) [facility] Medical History Depression History of abnormal cervical Pap smear History of vaginal delivery Home Medications ?Medication ?Instructions ?Recorded ?Last Taken ?Type cefdinir 300 mg capsule 300 mg PO BID #14 caps 06/30/25 Unknown Rx metronidazole 500 mg tablet 500 mg PO Q8H #21 tabs 06/30/25 Unknown Rx ondansetron 4 mg disintegrating 4 mg PO Q8H PRN PRN Nausea #10 tabs 06/30/25 Unknown Rx tablet prednisone 10 mg tablet 10 mg PO UD #33 tabs 07/28/25 Unknown Rx Allergy/AdvReac Type Severity Reaction Status Date / Time No Known Allergies Allergy Verified 07/28/25 15:45 Surgical History History of tonsillectomy Social History Smoking Status: Never smoker ROS ROS ED Constitutional Constitutional ED: Reports chills, fever(s), sweats and weight loss; Denies subjective ENT ENT ED: Denies ear pain, rhinorrhea or sore throat Cardiovascular Cardiovascular: Denies chest pain or palpitations Respiratory/Chest Respiratory/Chest: Denies cough, dyspnea or dyspnea on exertion Gastrointestinal Gastrointestinal: Denies abdominal pain, constipation, diarrhea, melena, nausea or vomiting Genitourinary Genitourinary ED: Denies dysuria, hematuria or urinary frequency Musculoskeletal Musculoskeletal: Reports back pain and other Details: Patient complains of bilateral paralumbar discomfort. ; Denies arthralgias or myalgias Integumentary Denies abscess, Abrasions or rash Neurologic Neurologic: Denies headache(s) or paresthesias Psychiatric Psychiatric: Reports depression; Denies anxiety Hematologic/Lymphatic Hematologic/Lymphatic: Denies easy bleeding or easy bruising Allergic/Immunologic Allergic/Immunologic ED: Denies mouth swelling or tongue swelling EXAM Physical Exam Const Vital Signs: 07/28/25 15:45 07/28/25 16:14 Temperature 97.2 F L Temperature Source Temporal Pulse Rate 85 Pulse Rate [Lying] 78 Pulse Rate [Sitting (for 1 minute prior to obtaining)] 76 Pulse Rate [Standing (for 1 minute prior to obtaining)] 86 Respiratory Rate 16 Blood Pressure 133/95 H Blood Pressure [Lying] 120/81 H Blood Pressure [Sitting (for 1 minute prior to obtaining)] 120/84 H Blood Pressure [Standing (for 1 minute prior to obtaining)] 112/82 H Blood Pressure Mean 107 Blood Pressure Mean [Lying] 94 Blood Pressure Mean [Sitting (for 1 minute prior to obtaining)] 96 Blood Pressure Mean [Standing (for 1 minute prior to obtaining)] 92 Pulse Ox 100 Oxygen Delivery Method Room Air Positive well nourished and well developed Constitutional Narrative: Patient is thin. She does not appear well. Vitals are marked for slight elevation of blood pressure. General Appearance ED: well developed; Negative for pallor HEENT Reports dry mucous membranes HEENT Narrative: Posterior pharynx not erythema or exudate. normocephalic Mouth ED: Yes dry mucous membranes Mouth: dry mucous membranes Eyes PERRL and EOMs intact bilaterally General Eye ED: Negative for pale conjunctiva or scleral icterus Neck no lymphadenopathy, supple and no JVD Resp normal respiratory effort and clear to auscultation bilaterally Cardio regular rate, regular rhythm, S1 normal heart sound, S2 normal heart sound and no murmurs GI non-distended and no masses; Negative for non-tender GI Narrative: Patient had and is tympanitic. Bowel sounds are slightly diminished. There is tenderness in the epigastric area only. There is no guarding or peritoneal findings. Back/Spine Back/Spine Narrative: Inspection appears normal. Extremity full ROM Extremity Narrative: There were no lesions to suggest erythema nodosum. Neuro CN's II-XII intact bilaterally, moves all extremities and no sensory deficits noted Sensorium / Orientation: alert Motor Exam: strength 5/5 throughout Psych mental status grossly normal Psych Narrative: Affect is flat. Skin no wounds General Skin Exam: Negative for jaundice or pallor Lesions: no lesions Rashes: no rashes MDM MDM MDM Narrative Medical decision making narrative: Patient may have undiagnosed inflammatory bowel disorder i.e. Crohn's or ulcerative colitis. She has had diarrhea for greater than a month will obtain basic metabolic panel to assess renal function and specifically evaluate for hypokalemia. CBC to assess white count differential and specifically to determine if there is any eosinophils. Since she has not had stool cultures will obtain stool for enteric pathogens. Patient's abdominal exam is benign. Patient would benefit from colonoscopy. In my opinion CT is not needed especially since she had one approximately a month ago. History & Record Review Additional record(s) reviewed:: Prior ED visit (Documented HPI narrative) and Prior labs Lab Data Attestation: I reviewed the patient's lab results. Lab results narrative: CBC is normal. Comprehensive metabolic panel is unremarkable. Glucose is slightly elevated 112. There is no hypokalemia or evidence of previously azotemia or kidney injury. Labs: Laboratory Results - last 24 hr 07/28/25 16:07 WBC 6.9 RBC 4.45 Hgb 13.0 Hct 38.5 MCV 86.5 MCH 29.2 MCHC 33.8 RDW Std Deviation 37.9 RDW Coeff of Jess 11.9 Plt Count 281 MPV 9.6 Immature Gran % (Auto) 0.100 Neut % (Auto) 61.5 Lymph % (Auto) 25.7 [place] % (Auto) 8.6 Eos % (Auto) 3.5 Baso % (Auto) 0.6 Absolute Neuts (auto) 4.2 Absolute Lymphs (auto) 1.77 Nucleated RBC % 0 Sodium 140 Potassium 3.4 Chloride 104 Carbon Dioxide 26.7 Anion Gap 10 BUN 6 Creatinine 0.67 L Estim Creat Clear Calc 106.98 Est GFR (MDRD) Non-Af 121 BUN/Creatinine Ratio 8.2 L Glucose 112 H Calcium 9.4 Total Bilirubin 0.40 Direct Bilirubin 0.14 AST 15 ALT 6 Alkaline Phosphatase 50 Total Protein 7.4 Albumin 4.5 Globulin 2.9 Lipase 30 Patient was not able to give any additional stool. Treatment and Re-Evaluation :: Welder was asked to arrange for outpatient GI follow-up since she will need a colonoscopy. Since there is concern she may have inflammatory bowel disorder will place on prednisone. Comments:: Plan is prednisone and she has a follow-up appointment to be seen by GI on August 04 at 11:30 AM Vital Sign Attestation:: Blood pressure has improved. She is afebrile. Discharge Plan Triage Chief Complaint: Diarrhea ED Provider: Etienne Larson Dx/Rx/DC Orders Clinical Impression: Chronic diarrhea, Colitis, Acute dehydration Instructions: Colitis, ED Diarrhea, Unknown Cause Prescriptions: New prednisone 10 mg tablet 10 mg PO UD Qty: 33 0RF Rx Instructions: Take 4 tablets daily for 3 days, then 3 daily for 3 days, then 2 daily for 3 days, then 1 a day for 3 days then 1 QOD for 3 doses. No Action cefdinir 300 mg capsule 300 mg PO BID Qty: 14 0RF metronidazole 500 mg tablet 500 mg PO Q8H Qty: 21 0RF ondansetron 4 mg tablet,disintegrating 4 mg PO Q8H PRN PRN (Reason: Nausea) Qty: 10 0RF Primary Care Provider: Eliud Verduzco [facility] Referrals: Friend,DO Guillaume [Med Staff - Active Staff, Gastroenterology] - 08/04/25 11:30 am Care Physician,No Primary [Non-Staff, Medical] Print Language: Mexican Disposition Disposition: Home, Self Care
[2025-07-28] MEDS: 0.9% Normal Saline (1000mL) 1,000 ML 999 ML IV (16:11)
[2025-07-28 16:14] VITALS: BP 112/82; BP 120/81; BP 120/84; PULSE 76; PULSE 78; PULSE 86
[2025-07-28 16:18] LABS: Hematocrit 38.5 % (37-47); Hemoglobin 13.0 g/dL (12.0-15.0); Immature Granulocytes Count 0.010 X10^3/uL (0.0-0.0); Mean Corp Hgb Conc 33.8 g/dL (32-36); Mean Corpuscular Volume 86.5 fL (81-99); Mean Platelet Vol. 9.6 fl (6.2-12.0); NRBC Flagged by Analyzer 0 % (0-5); Platelet Count 281 K/mm3 (150-450); RBC Distribution Width CV 11.9 % (11.6-14.6); RBC Distribution Width SD 37.9 fl (35.1-43.9); Red Blood Count 4.45 M/mm3 (4.2-5.4); White Blood Count 6.9 K/mm3 (4.4-11.0)
[2025-07-28 16:49] LABS: AST(SGOT) 15 U/L (<=31); Alanine Aminotransfer ALT/SGPT 6 U/L (<=34); Albumin, Serum 4.5 g/dL (3.5-5.0); Alkaline Phosphatase 50 U/L (35-104); Anion Gap 10 (5-15); BUN 6 mg/dL (4-19); BUN/Creat Ratio 8.2 RATIO (10-20); Bilirubin, Direct 0.14 mg/dL (0.00-0.30); Calcium,Total 9.4 mg/dL (7.6-11.0); Carbon Dioxide 26.7 mmol/L (21.0-32.0); Chloride 104 mmol/L (98-108); Estimated Creatinine Clearance 106.98 ml/min (50-250); Globulin 2.9 g/dL (2.2-4.2); Glucose 112 mg/dL (70-99); Lipase 30 U/L (13-75); Potassium 3.4 mmol/L (3.3-5.1)
[2025-07-28 18:52] VITALS: BP 119/80; PULSE 58; RESP 16; TEMP 36.6; O2SAT 97
== END 2025-07-28 18:52 | disposition home or self-care (01) ==
PROVIDERS: Emergency Provider Emergency Medicine; PCP Family Medicine; Visit Provider Emergency Medicine
DX: K52.9 Noninfective gastroenteritis and colitis, unspecified (principal); E86.0 Dehydration; F32.A Depression, unspecified
CPT/HCPCS: 80048; 80076; 83690; 85025; 96360; 99283; A4216

== ENCOUNTER 2025-08-24 12:55 | Day surgery (SDC) | payer OTHER, SELFPAY ==
[2025-08-24] VITALS (8 sets, daily range): BP systolic 80–115; BP diastolic 50–91; PULSE 57–84; RESP 16–18; TEMP 36.3–36.9; O2SAT 100; BMI 18.6
[2025-08-24 13:16] LABS: Internal QC Validated? YES +Cl - CLEAR BKGD; Pregnancy, Urine Negative Negative; Record Kit Lot#,Urine Preg 980607
--- NOTE | 2025-08-24 13:19 | PCM.HP.STD ---
HPI - General General Date of Admission: 08/24/25 Date of Service: 08/24/25 Chief Complaint: Diarrhea HPI Narrative AMRITA VILLAGRAN, is a 30 F who presents [Chief Complaint: Diarrhea [facility] 06/30/2025 with nausea diarrhea and abdominal pain. CTA abdomen pelvis showing left ovarian cyst, hepatic flexure with very small area of colitis. Treated for infectious colitis with cefdinir and Flagyl for [address] abdomen pelvis . Prominent fluid-filled uterus with an arcuate configuration. Please correlate with the patient's menstrual cycle. 2. Left ovarian cyst measuring 4.1 cm. 3. Questionable mild wall thickening of the hepatic flexure of the colon may represent very mild colitis. [facility] 07/28/2025 with continued diarrhea. Antibiotics did slow the diarrhea down. Patient has lost 13 pounds over the last 2 months. Denies family history of UC or Crohn's. CBC and CMP largely unremarkable. Prescribed prednisone taper. OV 08/04/2025 patient became sick with COVID in April 2025 and subsequently developed severe diarrhea. This lasted for around 3 months that she was having up to 7 bowel movements per day. She was started on antibiotics at her first ER visit but symptoms were refractory. Symptoms did improve with the prednisone which she is still on. She is now having formed stools 3-4 times per day. Over this time she has lost around 15 to 20 pounds due to decreased oral intake. She has felt chills but unsure if she has had fevers she has had back pain. She denies blood in her stool. She has no personal or family history of ulcerative colitis or Crohn's disease. She notes that her mother and son have autoimmune conditions. [facility] Medical History Wears glasses Wears contact lenses Non-smoker Depression History of abnormal cervical Pap smear History of vaginal delivery Allergy/AdvReac Type Severity Reaction Status Date / Time No Known Allergies Allergy Verified 08/23/25 09:51 Family History Mother Anxiety Asthma Depression Grandmother Heart disease High cholesterol Grandfather Heart disease High cholesterol Father Thyroid disorder Surgical History History of hysteroscopy History of tonsillectomy Social History Smoking Status: Never smoker alcohol intake: never substance use type: does not use frequency: 5-6 times per week ROS Constitutional Constitutional: Denies fatigue, fever(s), poor appetite, weight gain or weight loss Gastrointestinal Gastrointestinal: Denies belching, bloating, change in bowel habits, change in stool character, chewing difficulty, coffee ground emesis, constipation, cramping, diarrhea, dyspepsia, dysphagia, early satiety, excessive flatus, fecal incontinence, heartburn, hematemesis, hematochezia, hemorrhoids, loose stools, melena, nausea, odynophagia, rectal bleeding, tenesmus, vomiting or weight changes Physical Exam Const alert, oriented x3, no apparent distress and healthy appearing General Appearance: cooperative GI normal to inspection, nondistended, normoactive bowel sounds, soft to palpation, non-tender and non-distended Percussion: normal to percussion Rectal Exam: deferred Results Lab / Micro Data Labs: Laboratory Results - last 24 hr 08/24/25 13:00: Urine Test Negative Assessment & Plan Assessment/Plan (1) Diarrhea: PLAN: Assessment and Plan Assessment and Plan (1) Colitis: Status: Acute (2) Chronic diarrhea: Status: Chronic (3) Unintentional weight loss of 5% body weight or less within 1 month: Status: Acute Plan: Amrita is a 30-year-old female patient with largely unremarkable past medical history here today for evaluation of diarrhea x 3 months. Patient initially noted having diarrhea after having COVID-19 in April 2025 which persisted for around 3 months. Over this time she was treated with antibiotics and prednisone. Symptoms did improve with prednisone but not the antibiotic. She is now having 3-4 formed bowel movements per day with urgency and tenesmus. She has had a 15 to 20 pound unintentional weight loss over this time. I have ordered stool testing for infection and inflammation: I will also repeat CBC, celiac panel, CMP and CRP. She will undergo colonoscopy for evaluation of her colon. On the differential diagnosis is inflammatory bowel disease, celiac disease or postinfectious IBS. Will consider further treatment pending results. - Stool testing for infection or inflammation - CBC, CMP, celiac panel and CRP - Colonoscopy - Follow-up after testing Note: Portions of this note may have been selectively carried forward from previous documentation to ensure continuity and accuracy of the clinical record. All imported information has been reviewed and updated as necessary to reflect the current patient status, findings, and clinical decision-making for this encounter. [employer] speech recognition medical record transcriber software was used to create portions of this document. Sound alike and misspelled words, as well as other medical record transcriber errors may be contained in the documentation. Orders: Orders Calprotectin, Stool Today K52.9 - Noninfective gastroenteritis and colitis, unspecified, R63.4 - Abnormal weight loss OVA+PARA w/Giardia EIA [id number] Today K52.9 - Noninfective gastroenteritis and colitis, unspecified, R63.4 - Abnormal weight loss ENTERIC PATHOGEN PANEL STOOL Today K52.9 - Noninfective gastroenteritis and colitis, unspecified, K58.9 - Irritable bowel syndrome, unspecified, R63.4 - Abnormal weight loss CDIFF (PCR) Today K52.9 - Noninfective gastroenteritis and colitis, unspecified, R63.4 - Abnormal weight loss Celiac Disease Profile Today K52.9 - Noninfective gastroenteritis and colitis, unspecified, R63.4 - Abnormal weight loss CRP Today K52.9 - Noninfective gastroenteritis and colitis, unspecified, R63.4 - Abnormal weight loss Erythrocyte Sed Rate Today K52.9 - Noninfective gastroenteritis and colitis, unspecified, R63.4 - Abnormal weight loss ]
[2025-08-24] MEDS: Lactated Ringers 1,000 ML 15 ML IV (13:44)
--- NOTE | 2025-08-24 13:58 | PRE.ANES_ITS ---
ASA Classification* ASA Classification ASA Classification: 1 Assessment & Plan Anesthesia* Anesthesia Assessment Anesthesia Assessment: Discussed sedation and/or anesthesia options, risks, benefits, and alternatives with patient/parents/legal guardian/POA. Questions invited. The patient/parents/legal guardian/POA seems to understand and agrees to proceed with anesthesia plan. Reviewed the physical assessment, medical history, allergy history and patient home medications list prior to surgery/procedure/anesthetic and documented any changes. Performed airway and anesthesia risk assessments. Anesthesia Type Anesthesia Type: MAC History Source History Obtained from:: Patient and Chart Anesthesia Focused Assessment* Temperature: 98.4 F Pulse Rate: 84 Blood Pressure: 115/91 Respiratory Rate: 18 Pulse Ox: 100 Oxygen Delivery Method: Room Air Airway Assessment Mouth opens: >3 cm Mallampati Score: I Teeth Condition: Intact Neck Range of motion (ROM): Full ROM Labs Anesthesia Preop lab: CBC WBC, (4.4-11.0) 6.9 K/mm3 07/28/25, 16:07 RBC, (4.2-5.4) 4.45 M/mm3 07/28/25, 16:07 Hgb, (12.0-15.0) 13.0 g/dL 07/28/25, 16:07 Hct, (37-47) 38.5 % 07/28/25, 16:07 Plt Count, (150-450) 281 K/mm3 07/28/25, 16:07 CHEMISTRY Potassium, (3.3-5.1) 3.4 mmol/L 07/28/25, 16:07 Sodium, (133-145) 140 mmol/L 07/28/25, 16:07 BUN, (4-19) 6 mg/dL 07/28/25, 16:07 Creatinine, (0.70-1.20) 0.67 mg/dL L 07/28/25, 16:07 Glucose, (70-99) 112 mg/dL H 07/28/25, 16:07 TSH, (0.358-3.74) 2.14 uIU/mL 11/13/16, 13:30 COAG Urine Test Negative Negative Today, 13:00 Pre-Assessment Diagnosis/Proposed Procedure Planned Operative Procedure(s): COLONOSCOPY Anesthesia History Anesthesia History - statistical consultant: Anesthesia History - statistical consultant Hx Hospitalization No 08/23/25 09:52 Any Problems With Anesthesia No 08/23/25 09:52 Cholinesterase deficiency No 08/23/25 09:52 You/Your Family Experience No 08/23/25 09:52 fever (hyperthermia) with Relationship Recent Exposure to Contagious No 08/24/25 13:39 Disease Does patient have nerve No 08/23/25 09:52 stimulator Patient instructed to have device shut off --Does patient have Pacemaker No 08/24/25 13:39 or ICD? When Was Last Pacemaker Check QUESTION #4 FULL TEXT: You/Your Family Experience fever (hyperthermia) with Anesthesia Last Oral Intake Last Oral intake: Last Oral Intake NPO since 22:00 08/24/25 13:39 Meds taken in AM with sips of No 08/24/25 13:39 water? Meds patient instructed to take am of surgery PONV PONV - statistical consultant: PONV - statistical consultant Female Yes 08/23/25 09:52 HX of Motion Sickness No 08/23/25 09:52 HX of N/V After Surgery No 08/23/25 09:52 Non-Smoker Yes 08/23/25 09:52 Duration of Surgery greater No 08/23/25 09:52 than 60 minutes Number of Risk Factors 2 08/23/25 09:52 PONV Score Moderate Risk 08/23/25 09:52 Height & Weight Height & Weight: Anesthesia: Height & Weight Height 5 ft 7 in 08/24/25 13:39 Weight: 54 kg 08/24/25 13:39 Body Mass Index (BMI) 18.6 08/24/25 13:39 Respiratory Assessment Respiratory Assessment - statistical consultant: Respiratory Tract Infection Hx - statistical consultant Hx Respiratory Tract Infection No 08/23/25 09:52 STOP Sleep Apnea STOP Sleep Apnea - statistical consultant: STOP Sleep Apnea - statistical consultant Hx Hypertension No 08/23/25 09:52 Hx Sleep Apnea No 08/23/25 09:52 CPAP BIPAP Do you snore loudly (louder No 08/23/25 09:52 than talking or can be heard Do you often feel tired/ No 08/23/25 09:52 fatigued/ sleepy during daytime? Has anyone observed you stop No 08/23/25 09:52 breathing during sleep? STOP Results Negative 08/23/25 09:52 QUESTION #5 FULL TEXT : Do you snore loudly (louder than talking or can be heard through closed doors)? Tobacco Use History Tobacco Use History - statistical consultant: Tobacco Use History - statistical consultant Tobacco Use Smoking Status Never smoker 08/23/25 09:52 Hx Tobacco Use No 08/23/25 09:52 Years Smoking Packs Smoked per Day Smoking Cessation Date was within the last 15 years Hx Smoking Cessation Date Hx Smoking Cessation Counseling Hematologic Medial History Hematologic Hx - statistical consultant: Hematologic Medical Hx - human resources intern Hx of Blood Transfusion No 08/23/25 09:52 Hx of Transfusion in last 3 No 08/23/25 09:52 Months Date of Last Transfusion (if within last 3 months) Ever experience any problems No 08/23/25 09:52 with transfusion(s)? Specify any problems Hx of Preganancy in last 3 No 08/23/25 09:52 Months Nurse Filling Out Transfusion [email or web address] 08/23/25 09:52 & Questions: Date: 08/23/25 08/23/25 09:52 Time: 09:53 08/23/25 09:52 Patient unable to answer at this time (ie. confused, unrespo /Reproduction History /Reproductive History - statistical consultant: /Reproductive Hx- statistical consultant Hx Now No 08/23/25 09:52 Gestational Age (in weeks): EDC: Hx Hx Para Hx Section SAB No 08/23/25 09:52 Does the father of the baby or his family experience fever w Father of the baby Malignant Hypertension history comment Active Medications Active Medications: Current Medications Generic Name Dose Route Start Last Admin Trade Name Freq PRN Reason Stop Dose Admin Lactated Ringer's 1,000 mls @ 15 mls/hr 08/24/25 13:15 08/24/25 13:44 IV 15 mls/hr .Q48H ENMANUEL Administration PFSH Medical History Wears glasses Wears contact lenses Non-smoker Depression History of abnormal cervical Pap smear History of vaginal delivery Allergy/AdvReac Type Severity Reaction Status Date / Time No Known Allergies Allergy Verified 08/24/25 13:39 Family History Mother Anxiety Asthma Depression Grandmother Heart disease High cholesterol Grandfather Heart disease High cholesterol Father Thyroid disorder Surgical History History of hysteroscopy History of tonsillectomy Social History Smoking Status: Never smoker alcohol intake: never substance use type: does not use frequency: 5-6 times per week Review of Systems (Anesthesia) ROS Narrative System reviewed and no additional complaints, except as documented.
--- NOTE | 2025-08-24 14:00 | COLBX_PTH ---
PATIENT: BHUPINDER VILLAGRAN LOC: EN U#:[id number] AGE/SX: 30/F ROOM: RE08/24/[address]: Dr. Guillaume Reyes DO : 1995 BED: DIS: 08/24/2025 SPEC #: [id number] RECD: 08/24/25 15:06 STATUS: PUJA REMasoud #: [id number] TOMMY: 08/24/25 14:[address]: Guillaume Reyes DEPT: SURGICAL PATHOLOGY RECD BY: Tulio Vasquez ENTERED: 08/25/25 08:47 SP TYPE: COLON BX ROBERT DR: Dr. Eliud Verduzco MD Tissues: A - Ileum, NOS B - COLON BIOPSY Procedures: Surgery Specimen Level IV HEADER OPERATION: Colonoscopy, biopsy PRE-OP DIAGNOSIS: Colitis, chronic diarrhea, unintentional weight loss of 5% of body weight or less within 1 month TISSUE SUBMITTED: A- Terminal ileum biopsy, B- Random colon biopsy MICROSCOPIC DIAGNOSIS A. Small intestine, terminal ileum, biopsy: - Prominent mucosal lymphoid tissue, favor reactive - see note. Note: If clinical suspicion for a lymphoproliferative disorder is high, please contact the laboratory to request further evaluation. B. Colon, random, biopsy: - No specific pathologic change. - The histologic features of microscopic colitis are not demonstrated. MICROSCOPIC DESCRIPTION Slides are reviewed. GROSS DESCRIPTION A. Received in fixative is one container labeled with the patient's name and designated Terminal ileum biopsy. The specimen consists of three irregular fragments of valdivia tissue that measure 0.4 to 0.5 cm. The specimen is totally submitted in one cassette. B. Received in fixative is one container labeled with the patient's name and designated Random colon biopsy. The specimen consists of multiple irregular fragments of valdivia tissue that in aggregate measure 2.4 x 0.9 x 0.1 cm. The specimen is totally submitted in one cassette. SD 08/24/2025 CPT:53455r8
[2025-08-24] MEDS: Lidocaine 1% (5 ml sdv) 5 ML Vial IV (14:24)
--- NOTE | 2025-08-24 14:48 | OP.PROVAT_ITS ---
08/24/2025 Eliud Verduzco Md Re : Colonoscopy procedure for Amrita Dial Dear Dr. Verduzco This procedure was performed on Sunday, August 24, 2025. My impressions and recommendations are as follows: Impressions : - The entire examined colon is normal. Biopsied. - Mild inflammation was found in the ileum secondary to ileitis. Biopsied. Recommendations : - Discharge patient to home. - Resume previous diet. - Continue present medications. - Await pathology results. - Repeat colonoscopy at appointment to be scheduled for surveillance based on pathology results. My findings are described in the full procedure note, which is enclosed. If I can be of further assistance, please feel free to contact me at . Sincerely, Guillaume Reeys, 08/24/2025 2:47:37 PM This report has been signed electronically.
--- NOTE | 2025-08-24 14:48 | OP.COLON_ITS ---
Patient Name: Amrita Archibald Procedure Date: 08/24/2025 2:11 PM Date of : 1995 Age: 30 Procedure: Colonoscopy Indications: Chronic diarrhea Providers: Guillaume Reyes DO Referring MD: Eliud Verduzco Md Medicines: Monitored Anesthesia Care Patient Profile: This is a 30 year old female. Refer to note in patient chart for documentation of history and physical. Last Colonoscopy: none. The patient's first colonoscopy is today. Complications: No immediate complications. Procedure: Pre-Anesthesia Assessment: - Prior to the procedure, a History and Physical was performed, and patient medications and allergies were reviewed. The patient is competent. The risks and benefits of the procedure and the sedation options and risks were discussed with the patient. All questions were answered and informed consent was obtained. Patient identification and proposed procedure were verified by the physician in the pre-procedure area. Mental Status Examination: alert and oriented. Airway Examination: normal oropharyngeal airway and neck mobility. Respiratory Examination: clear to auscultation. CV Examination: normal. Prophylactic Antibiotics: The patient does not require prophylactic antibiotics. Prior Anticoagulants: The patient has taken no anticoagulant or antiplatelet agents except for NSAID medication. ASA Grade Assessment: II - A patient with mild systemic disease. After reviewing the risks and benefits, the patient was deemed in satisfactory condition to undergo the procedure. The anesthesia plan was to use monitored anesthesia care (MAC). Immediately prior to administration of medications, the patient was re-assessed for adequacy to receive sedatives. The heart rate, respiratory rate, oxygen saturations, blood pressure, adequacy of pulmonary ventilation, and response to care were monitored throughout the procedure. The physical status of the patient was re-assessed after the procedure. After I obtained informed consent, the scope was passed under direct vision. Throughout the procedure, the patient's blood pressure, pulse, and oxygen saturations were monitored continuously. The colonoscope was introduced through the anus and advanced to the terminal ileum. The colonoscopy was performed without difficulty. Scope In: 2:27:05 PM Scope Withdrawal Time 0 hours 11 minutes 3 seconds Scope Out: 2:41:29 PM Total Procedure Duration Time 0 hours 14 minutes 24 seconds Findings: The perianal and digital rectal examinations were normal. The colon (entire examined portion) appeared normal. Biopsies were taken with a cold forceps for histology. Verification of patient identification for the specimen was done. Estimated blood loss was minimal. Patchy mild inflammation characterized by congestion (edema) and erosions was found in the distal ileum and in the terminal ileum. Biopsies were taken with a cold forceps for histology. Verification of patient identification for the specimen was done. Estimated blood loss was minimal. Impression: - The entire examined colon is normal. Biopsied. - Mild inflammation was found in the ileum secondary to ileitis. Biopsied. Recommendation: - Discharge patient to home. - Resume previous diet. - Continue present medications. - Await pathology results. - Repeat colonoscopy at appointment to be scheduled for surveillance based on pathology results. Procedure Code(s): --- Professional --- 28703, Colonoscopy, flexible; with biopsy, single or multiple CPT copyright 2021 [employer]. All rights reserved. The codes documented in this report are preliminary and upon inspection machine tender review may be revised to meet current compliance requirements. Guillaume Reyes DO 08/24/2025 2:47:37 PM This report has been signed electronically. Number of Addenda: 0 Note Initiated On: 08/24/2025 2:11 PM
--- NOTE | 2025-08-24 14:50 | PCM.POST.ANE ---
Anesthesia: Postop Eval I Current Vital Signs Temperature: 97.4 F Pulse Rate: 62 Blood Pressure: 86/53 Respiratory Rate: 16 Pulse Ox: 100 Oxygen Delivery Method: Room Air Assessment Airway patent: Yes Spontaneous unlabored respirations: Yes Mental status: Awake and Calm nausea: No Vomiting: No Anesthesia Complication: No Fluid Hydration Crystalloid volume administer (ml): 600 Total IV fluid infused: 600 Progress Note Anesthesia document: Postop Eval 1 completed: Yes
--- NOTE | 2025-08-24 20:33 | POSTOPAN2_ITS ---
Anesthesia Postop Eval I Sum Postop Eval Completion status Anesthesia document: Postop Eval 1 completed: Yes Anesthesia Postop Eval I Summary Anesthesia Postop Eval I Summary: Anesthesia Postop Eval I: Assessment Summary Airway patent Yes 08/24/25 14:51 LAUNDRY MACHINE MECHANIC.[email or web address] Spontaneous unlabored Yes 08/24/25 14:51 LAUNDRY MACHINE MECHANIC.GDOTT respirations Mental status Awake,Calm 08/24/25 14:51 LAUNDRY MACHINE MECHANIC.GDOTT nausea No 08/24/25 14:51 LAUNDRY MACHINE MECHANIC.GDOTT Vomiting No 08/24/25 14:51 LAUNDRY MACHINE MECHANIC.GDOTT Anesthesia Postop Eval I: Fluid Summary Crystalloid volume administer 600 08/24/25 14:51 LAUNDRY MACHINE MECHANIC.GDOTT (ml) Colloids volume administered ( ml) Blood Product volume administered (ml) Total IV fluid infused 600 08/24/25 14:51 LAUNDRY MACHINE MECHANIC.GDOTT Anesthesia Postop Eval I: Summary Notes Anesthesia Complication No 08/24/25 14:51 LAUNDRY MACHINE MECHANIC.GDOTT Anesthesia Complication Comment: Post-operative progress note Anesthesia: Postop Eval II Evaluation Mental status: Awake and Calm Pain Level: 0 nausea: No Vomiting: No Complications Anesthesia Complication: No
--- NOTE | 2025-08-24 20:33 | PCM.POSTANE2 ---
Anesthesia Postop Eval I Sum Postop Eval Completion status Anesthesia document: Postop Eval 1 completed: Yes Anesthesia Postop Eval I Summary Anesthesia Postop Eval I Summary: Anesthesia Postop Eval I: Assessment Summary Airway patent Yes 08/24/25 14:51 FIRST COAT [email or web address].[email or web address] Spontaneous unlabored Yes 08/24/25 14:51 FIRST COAT SANDER.GDOTT respirations Mental status Awake,Calm 08/24/25 14:51 FIRST COAT SANDER.GDOTT nausea No 08/24/25 14:51 FIRST COAT SANDER.GDOTT Vomiting No 08/24/25 14:51 FIRST COAT SANDER.[email or web address] Anesthesia Postop Eval I: Fluid Summary Crystalloid volume administer 600 08/24/25 14:51 FIRST COAT SANDER.GDOTT (ml) Colloids volume administered ( ml) Blood Product volume administered (ml) Total IV fluid infused 600 08/24/25 14:51 FIRST COAT SANDER.GDOTT Anesthesia Postop Eval I: Summary Notes Anesthesia Complication No 08/24/25 14:51 FIRST COAT SANDER.GDOTT Anesthesia Complication Comment: Post-operative progress note Anesthesia: Postop Eval II Evaluation Mental status: Awake and Calm Pain Level: 0 nausea: No Vomiting: No Complications Anesthesia Complication: No
== END 2025-08-24 15:26 | disposition home or self-care (01) ==
LOC: EN 12:58 → AC 13:00
PROVIDERS: Anesthesiology; PCP Family Medicine; Referring Provider Family Medicine; Visit Provider Internal Medicine Gastroenterology
PROC: 0DJD8ZZ Inspection of Lower Intestinal Tract, Via Natural or Artificial Opening Endoscopic (ICD-10-PCS; CPT 45378; principal; 2025-08-24 13:55)
DX: K52.9 Noninfective gastroenteritis and colitis, unspecified (principal); R63.4 Abnormal weight loss
CPT/HCPCS: 45380; 81025; 88305; J2405

== ENCOUNTER → 2025-08-31 | Outpatient (CLI) | payer OTHER, SELFPAY ==
[2025-08-31 17:51] LABS: Hematocrit 39.9 % (37-47); Hemoglobin 13.6 g/dL (12.0-15.0); Immature Granulocytes Count 0.030 X10^3/uL (0.0-0.0); Mean Corp Hgb Conc 34.1 g/dL (32-36); Mean Corpuscular Volume 87.1 fL (81-99); Mean Platelet Vol. 10.3 fl (6.2-12.0); NRBC Flagged by Analyzer 0 % (0-5); Platelet Count 307 K/mm3 (150-450); RBC Distribution Width CV 12.4 % (11.6-14.6); RBC Distribution Width SD 39.6 fl (35.1-43.9); Red Blood Count 4.58 M/mm3 (4.2-5.4); White Blood Count 7.4 K/mm3 (4.4-11.0)
[2025-08-31 17:57] LABS: Albumin, Serum 4.9 g/dL (3.5-5.0); BUN 12 mg/dL (4-19); BUN/Creat Ratio 18.9 RATIO (10-20); Globulin 3.2 g/dL (2.2-4.2); Glucose 97 mg/dL (70-99)
[2025-08-31 17:58] LABS: AST(SGOT) 17 U/L (<=31); Alanine Aminotransfer ALT/SGPT 11 U/L (<=34); Alkaline Phosphatase 59 U/L (35-104); Anion Gap 12 (5-15); Calcium,Total 9.7 mg/dL (7.6-11.0); Carbon Dioxide 23.7 mmol/L (21.0-32.0); Chloride 105 mmol/L (98-108); Ferritin 35 ng/mL (22-378); Potassium 3.8 mmol/L (3.3-5.1)
[2025-08-31 18:02] LABS: CRP < 3.00 mg/L (0.0-3.0)
[2025-09-02 15:08] LABS: Immunoglobulin A 263 mg/dL (87-352)
[2025-09-05 00:07] LABS: Egg, Whole <0.10 kU/L (Class 0); Mussels <0.10 kU/L (Class 0)
== END | disposition home or self-care (01) ==
LOC: MTLAB 16:37
PROVIDERS: PCP Family Medicine; Referring Provider Family Medicine; Visit Provider Family Medicine
DX: R19.7 Diarrhea, unspecified (principal)
CPT/HCPCS: 36415; 80053; 82728; 82784; 83516; 84443; 85025; 85652; 86003; 86005; 86140; 86255